=== PATIENT | female | born 1980 | race Caucasian/White ===

== ENCOUNTER 2020-07-21 08:09 | Emergency (ER) | payer MEDICAID, SELFPAY ==
--- NOTE | ~2020-07-21 | XR_ITS ---
EXAMINATION: XR CHEST CLINICAL INFORMATION: Aspiration. COMPARISON: None TECHNIQUE: 2 views of the chest were obtained. FINDINGS: No significant abnormality is noted involving the heart, lungs, mediastinum, bony thorax or soft tissues. XR/XR chest 2V IMPRESSION: No acute cardiopulmonary process.
--- NOTE | ~2020-07-21 | XR_ITS ---
EXAMINATION: XR SOFT TISSUE NECK CLINICAL INDICATION: Aspiration, possible foreign body. COMPARISON: None TECHNIQUE: 2 views of the soft tissue neck were obtained. FINDINGS: There is straightening of the normal cervical lordosis with normal spinal alignment. Minimal anterior osteophyte formation is seen at C5-6. The vertebral bodies are intact. The intervertebral disc spaces are unremarkable. The prevertebral soft tissues are unremarkable. The airways are patent. The cervical soft tissues are unremarkable. No radiopaque foreign body is seen. XR/XR soft tissue neck IMPRESSION: 1. Straightening of the normal cervical lordosis may be secondary to positioning and/or muscle spasm. No acute abnormality. 2. No radiopaque foreign body.
[2020-07-21 08:11] VITALS: BP 117/64; PULSE 62; RESP 18; TEMP 36.6; O2SAT 98; BMI 24.7
--- NOTE | 2020-07-21 09:23 | ED.GENADULT ---
HPI - General Adult General Chief complaint: General Medical Stated complaint: fb in throat Time Seen by Provider: 07/21/20 08:36 Source: patient Mode of arrival: ambulatory Limitations: no limitations History of Present Illness HPI narrative: 39 y/o female with no medical history presents to the ER with sensation of piece of food stuck in her airway since about 4pm yesterday. She reports eating a vegetable sandwich w/ sprouts, having a choking event and since then she has felt like there is something stuck in her trachea. She is able to eat and drink okay. She is not short of breath but continues to try to clear her throat. She woke up this morning with continued irritation so she came to the ER for further evaluation. MD complaint: FB in throat Onset (ago): day(s) (1) Location: neck and chest Radiation: non-radiation Severity: moderate Quality: sharp Pain Consistency: intermittent Relieving factors: none Exacerbating factors: none Associated symptoms: cough Treatments prior to arrival: none Related Data Previous Rx's Medication Instructions Recorded albuterol sulfate 1 inh INHALATION QID PRN #6.7 g 07/21/20 amoxicillin-pot clavulanate 1 tab PO BID #14 tab 07/21/20 [Augmentin] Allergies Allergy/AdvReac Type Severity Reaction Status Date / Time No Known Allergies Allergy Verified 07/21/20 08:15 Review of Systems Review of Systems: Constitutional: No Fever, No Chills ENT/Mouth: No sore throat, No Rhinorrhea, No Swallowing Difficulty Cardiovascular: No Chest Pain, No SOB Respiratory: No Cough, No Sputum, No Wheezing, No dyspnea Gastrointestinal: No Nausea, No Vomiting, No Diarrhea, No abdominal Pain Musculoskeletal: No joint pain, No Myalgias Skin: No Skin Lesions, No rash Neuro: No Weakness, No Numbness, No Dizziness, No Headache Heme/Lymph: No Bruising, No Lymphadenopathy PMFSH Past Medical History Attestation statement: The following information was validated with the patient. Social History Social History Advance Directives: No Advance Directives Information Provided: No Physical Exam Vital Signs: Vital Signs: Last Vital Signs Temp 98 F 07/21/20 08:11 Pulse 62 07/21/20 08:11 Resp 18 07/21/20 08:11 BP 117/64 07/21/20 08:11 Pulse Ox 98 04/25/21 08:11 Body Mass Index 24.7 Appearance: Alert. Oriented X3. No acute distress. Eyes: Pupils equal, round and reactive to light. ENT: Pharynx normal. No FB appreciated. Neck: Normal inspection. Neck supple. Trachea midline. CVS: Normal heart rate and rhythm. Pulses normal. Respiratory: No respiratory distress. Breath sounds normal. Abdomen: Soft and nontender. +BS x4 Skin: Skin warm and dry. Normal skin color. Normal skin turgor. No rashes. Extremities: No lower extremity edema. Neuro: Oriented X 3. No motor deficit. No sensory deficit. Course Course Course Narrative: 39 y/o female presenting with FB sensation in her trachea after choking episode yesterday. No SOB or difficulty breathing. No respiratory distress, SpO2 98% on room air. Eating and drinking okay. Doubt esophageal FB. Will get CXR and soft tissue neck XR to assess for FB vs aspiration pneumonia. Reevaluation(s) Reevaluation #1: XR's are normal. She continues to appear well. Tolerating PO. No resp distress. Possible tracheal FB/aspiration. Will start on ppx abx to prevent asp pna and have her f/u with Pulmonary. Critical Care Time Critical Care Time Critical Care Time: No Discharge Plan Discharge Clinical Impression: Aspiration into airway Qualifiers: Encounter type: initial encounter Qualified Code(s): T17.908A - Unspecified foreign body in respiratory tract, part unspecified causing other injury, initial encounter Patient Disposition: Home, Self-Care Additional Instructions: Your chest x-ray and neck x-ray were normal today. You likely have a small piece of food in your trachea. You are being started on antibiotics to prevent aspiration pneumonia. Your exam is reassuring and your oxygen levels are normal. If this continues to be bothersome, follow up with Pulmonary this week for evaluation. If you develop shortness of breath, difficulty breathing or chest pain come back to the ER for further evaluation. Prescriptions: New amoxicillin-pot clavulanate [Augmentin] 875-125 mg tablet 1 tab PO BID Qty: 14 RF: 0 albuterol sulfate 90 mcg/actuation HFA aerosol inhaler 1 inh inhalation QID PRN (Reason: bronchospasm) Qty: 6.7 RF: 0 Referrals: Kobi Wanger MD [Physician] - 2 days (tracheal FB/aspiration)
== END 2020-07-21 09:52 | disposition home or self-care (01) ==
PROVIDERS: Emergency Provider Emergency Medicine; PCP Nurse Practitioner Family
DX: R09.89 Other specified symptoms and signs involving the circulatory and respiratory systems (principal); R05 Cough; Z79.899 Other long term (current) drug therapy
CPT/HCPCS: 70360; 71046; 99283

== ENCOUNTER → 2020-07-26 10:48 | Outpatient (BNVA) | payer MEDICAID, SELFPAY | PROVIDERS: PCP Nurse Practitioner Family; Visit Provider Internal Medicine Pulmonary Disease | DX: T17.808A Unspecified foreign body in other parts of respiratory tract causing other injury, initial encounter (principal) | CPT/HCPCS: 99202 ==

== ENCOUNTER 2023-05-04 13:27 | Outpatient (RCR) | payer MEDICAID, SELFPAY | END 2023-06-07 12:29 | disposition home or self-care (01) | LOC: HO.PT 13:27 | PROVIDERS: PCP Nurse Practitioner Primary Care; Visit Provider Nurse Practitioner | DX: M25.561 Pain in right knee (principal); M25.562 Pain in left knee | CPT/HCPCS: 97110; 97112; 97161 ==

== ENCOUNTER 2023-05-07 13:22 | Outpatient (REF) | payer MEDICAID, SELFPAY | END 2023-05-07 13:23 | disposition home or self-care (01) | LOC: HO.MAMMO 13:22 | PROVIDERS: PCP Nurse Practitioner Primary Care; Visit Provider Nurse Practitioner | DX: Z12.31 Encounter for screening mammogram for malignant neoplasm of breast (principal) | CPT/HCPCS: 77063; 77067 ==

== ENCOUNTER → 2023-05-07 13:30 | Outpatient (BNV) | payer MEDICAID, SELFPAY | PROVIDERS: PCP Nurse Practitioner Primary Care; Visit Provider Radiology Diagnostic Radiology | DX: Z12.31 Encounter for screening mammogram for malignant neoplasm of breast (principal) | CPT/HCPCS: 77063; 77067 ==

== ENCOUNTER 2024-05-12 13:19 | Outpatient (REF) | payer MEDICAID, SELFPAY | END 2024-05-12 13:20 | disposition home or self-care (01) | LOC: HO.MAMMO 13:19 | PROVIDERS: PCP Nurse Practitioner; Visit Provider Nurse Practitioner Primary Care | DX: Z12.31 Encounter for screening mammogram for malignant neoplasm of breast (principal) | CPT/HCPCS: 77063; 77067 ==

== ENCOUNTER → 2024-05-12 13:30 | Outpatient (BNV) | payer MEDICAID, SELFPAY | PROVIDERS: PCP Nurse Practitioner; Visit Provider Internal Medicine | DX: Z12.31 Encounter for screening mammogram for malignant neoplasm of breast (principal) | CPT/HCPCS: 77063; 77067 ==